=== PATIENT | male | born 1970 | race Caucasian/White ===

== ENCOUNTER 2016-05-08 11:58 | Emergency (ER) | payer BC ==
[~2016-05-08] VITALS: Ht 190.5 cm; Wt 112.5 kg
[2016-05-08 12:38] LABS: HEMATOCRIT 43.6 % (38.0-50.0); MCH 26.7 PG (29.0-34.0); MCV 74.3 FL (86-99); MEAN PLAT.VOLUME 8.5 uM^3 (9.0-12.4); PLATELET COUNT 170 K/uL (156-360); RBC DIS.WIDTH-CV 12.9 % (11.8-14.6); RBC DIS.WIDTH-SD 34.3 % (39-53); RED BLOOD COUNT 5.87 M/uL (4.00-5.50); WHITE BLOOD COUNT 6.7 K/uL (4.1-10.2)
[2016-05-08 12:47] LABS: CHLORIDE 100 mEq/L (99-109); POTASSIUM 3.3 mEq/L (3.7-5.4); SODIUM 139 mEq/L (136-147)
[2016-05-08 12:48] LABS: GLUCOSE 233 mg/dL (70-99)
[2016-05-08 12:50] LABS: ANION GAP 9 MEQ/L (2-14)
[2016-05-08 12:52] LABS: GFR ESTIMATE (CALCULATED) > 59 mL/min/
[2016-05-08 12:53] LABS: UREA NITROGEN (BUN) 14 mg/dL (9-23)
[2016-05-08 12:59] LABS: TROP-I INTERPRETATION NEGATIVE; TROPONIN-I < 0.01 ng/mL (0.0-0.30)
[2016-05-08 13:10] LABS: ADD MIUA? NO; BILIRUBIN NEGATIVE; BLOOD NEGATIVE; GLUCOSE (STRIP) 250; KETONES NEGATIVE; LEUKOCYTES NEGATIVE; NITRITE NEGATIVE; PH, URINE 7.5 (5-8); PROTEIN (STRIP) NEGATIVE; UCUL ADDED? NO; UROBILINOGEN 0.2 MG/DL (0.2-1.0)
[2016-05-08 13:11] LABS: COLOR PALE STRAW ((YELLOW))
[2016-05-08 14:59] VITALS: BP 173/115
== END 2016-05-08 14:54 | disposition home or self-care (01) ==
LOC: EME 11:58
PROVIDERS: Emergency Medicine
DX: B02.9 Zoster without complications (principal); I10 Essential (primary) hypertension
CPT/HCPCS: 70450; 71010; 80048; 81003; 84484; 85027; 93005; 99281; 99284